=== PATIENT | male | born 1975 | race Caucasian/White ===

== ENCOUNTER 2020-12-13 20:26 | Emergency (ER) | payer OTHER, SELFPAY ==
[2020-12-13] MEDS ORDERED: Lidocaine Viscous Sol 2% 15 ml UD Cup ONE (22:55)
== END 2020-12-13 23:52 | disposition home or self-care (01) ==
LOC: CSHERS 20:26
DX: T18.128A Food in esophagus causing other injury, initial encounter (principal)
CPT/HCPCS: 71046; 93005